=== PATIENT | male | born 1955 | race African-American/Black ===

== ENCOUNTER 2017-01-03 11:31 | Inpatient (IN) | payer OTHER ==
[~2017-01-03] VITALS: Ht 182.9 cm; Wt 135.2 kg
--- NOTE | ~2017-01-03 | HC ---
[facility] [place] [address] CONSULTATION Name: KALYAN VELASCO Room #: 418-P [facility]#: [id number] Admission: 01/03/17 Attend Phys: Ethan Wright MD Discharge: 01/05/17 Date of : 53 Report #: [id number] THIS REPORT FOR: //name// CC: Dakota Wright MD DATE OF SERVICE: 01/04/2017 HISTORY OF PRESENT ILLNESS: The patient is a 61-year-old male who reports approximately 2-day history of dark stools, coffee-ground emesis. He does take an aspirin on a daily basis. He has a history of colon cancer resected years ago and apparently had an EGD and colonoscopy approximately [address] Dakota Hung. He states colonoscopy was negative. He is unsure of the findings of the upper endoscopy. He has no previous history of upper GI bleed. He denies any abdominal pain. He did have an episode of nausea and vomiting with coffee-ground emesis, but none since 2 days ago. He did report some flu-like symptoms and fever, but this is also improved. He denies any dysphagia or significant heartburn symptoms. He does not take any . On admission, his hemoglobin was 11.0. He was mildly . He was given IV fluids. His hemoglobin was dropped to 9.9. He is on a Protonix drip at this time and his aspirin has been held. He denies any chest pain or shortness of breath at this time. PAST MEDICAL HISTORY: Colon cancer, status post resection; hypertension, diabetes, COPD, hypercholesterolemia, the patient wears a CPAP at night. ALLERGIES: No known drug allergies. MEDICATIONS ON ADMISSION: Aspirin 325 mg, amlodipine, Lasix, Lipitor, Glucophage, and Neurontin. REVIEW OF SYSTEMS: As per HPI. FAMILY HISTORY: Negative for colon cancer. SOCIAL HISTORY: He denies any tobacco or alcohol. PHYSICAL EXAMINATION: VITAL SIGNS: Temperature is 97.6, pulse 87, blood pressure 113/69, and respiratory rate is 20. GENERAL: He is alert and oriented x3, in no acute distress. HEENT: Sclerae nonicteric. Oropharynx is clear. NECK: Supple without lymphadenopathy. CARDIOVASCULAR: Regular rate and rhythm. [facility] [address] [place] [address] CONSULTATION Name: KALYAN VELASCO Room #: 418-P [facility]#: [id number] Admission: 01/03/17 Attend Phys: Ethan Wright MD Discharge: 01/05/17 Date of : 53 Report #: [id number] CHEST: Clear to auscultation bilaterally. ABDOMEN: Soft, nontender, nondistended, normoactive bowel sounds. EXTREMITIES: No cyanosis, clubbing or edema. LABORATORY DATA: Sodium 144, potassium 3.2, chloride 109, bicarb 26, BUN 17, creatinine 0.8, AST 14, total bilirubin 0.8, calcium 8.4, alk phos 82, ALT is 23, total protein 6.3, albumin 3.3. WBC 5.5, hemoglobin 9.9, platelet count 177. ASSESSMENT AND PLAN: Gastrointestinal bleed and anemia, suspect upper source based on clinical history. We would recommend proceeding with an upper endoscopy today. Continue to hold aspirin, agree with Protonix drip, we will make further recommendations after endoscopy. Thank you for allowing me to participate in his care. <ELECTRONICALLY SIGNED> By: Jose Shook MD 01/07/17 0829 [id number] Jose Shook MD /nt
--- NOTE | ~2017-01-03 | P ---
[facility] [place] [address] PROCEDURE REPORT Name: KALYAN VELASCO Room #: 418-P [facility]#: [id number] Admission: 01/03/17 Attend Phys: Ethan Wright MD Discharge: 01/05/17 Date of : 53 Report #: [id number] THIS REPORT FOR: //name// CC: Dakota Wright MD DATE OF SERVICE: 01/04/2017 PROCEDURE PERFORMED: Upper endoscopy. HISTORY OF PRESENT ILLNESS: The patient is a 61-year-old male with approximately 2-day history of coffee-ground emesis times 1 and melanotic type stools, no abdominal pain. He was taking aspirin 325 mg on a daily basis. DESCRIPTION OF PROCEDURE: The risks and benefits of the procedure were explained to the patient, those risks including, but not limited to bleeding, perforation, and the risk of sedation. He understood these risks and gave informed consent. Conscious sedation was given using fentanyl and Versed. Next, using a standard mBloxn upper endoscope, the scope was placed in the patient's mouth and advanced under direct vision through the esophagus, stomach and into the second portion of the duodenum. The esophagus was normal throughout. The GE junction was normal. Overall, the gastric mucosa was normal in the fundus and body; however, in the antrum, there was gastritis with several small erosions, also noted there was a single ulcer approximately 1 cm in diameter. There was no visible vessel, although there was a small red area appears to be healing. There was no blood throughout the exam today. The pylorus was normal and patent. The duodenal bulb, first and second portion were all normal. The scope was then withdrawn and the procedure terminated. The patient tolerated the procedure well. IMPRESSION: 1. Antral ulcer, likely source of recent bleed, no visible vessel or clots. 2. Antral gastritis with several small erosions. 3. Otherwise, normal upper endoscopy. RECOMMENDATIONS: 1. Continue PPI drip today. 2. We will advance diet. 3. Repeat hemoglobin in the morning. If stable, we will likely recommend discharge tomorrow. 4. We would recommend continuing PPI therapy long-term if the patient remains on aspirin, we will also check stool for H. pylori antigen. [address] [address] PROCEDURE REPORT Name: KRISTAKALYAN Earline Room #: 418-P [facility]#: [id number] Admission: 01/03/17 Attend Phys: Ethan Wright MD Discharge: 01/05/17 Date of : 53 Report #: [id number] Thank you for allowing me to participate in his care. <ELECTRONICALLY SIGNED> By: Jose Shook MD 01/07/17 0829 [id number] 1108 Jose Shook MD /nt
--- NOTE | ~2017-01-03 | EKG ---
[address] [place] [address] ELECTROCARDIOGRAM REPORT Name: KALYAN VELASCO Room #: 418-P ADM IN [facility].R[facility]#: [id number] Admission: 01/03/17 Attend Phys: Ethan Wright MD Discharge: Date of : 53 Report #: [id number] THIS REPORT FOR: //name// [facility] ED Test Date: 2017-01-03 Test Time: 11:57:26 Pat Name: KALYAN VELASCO Department: Room: [facility] Gender: M [employer] Attendant: MZOOK : 1955 Requested By: Macrina Foster Order Number: [id number] MD: Evin Nguyen Measurements Intervals [place] Rate: 97 P: 69 MN: 171 QRS: -70 QRSD: 120 T: 74 QT: 364 QTc: 463 Interpretive Statements Sinus rhythm left anterior hemiblock Nonspecific intraventricular conduction delay No previous ECG available for comparison Electronically Signed On 01-04-2017 15:16:33 CDT by Evin Nguyen [email or web address] <ELECTRONICALLY SIGNED> By: Evin Nguyen MD, [facility] 01/04/17 1516 1157 1157 Evin Nguyen MD, FACC /EPI
[2017-01-03 11:34] VITALS: BP 98/70
[2017-01-03] MEDS ORDERED: LASIX 20 MG TAB20 MG PO (11:51)
[2017-01-03] MEDS ORDERED: ASPIRIN325 PO (11:51)
[2017-01-03] MEDS ORDERED: NORVASC5 MG PO (11:51)
[2017-01-03] MEDS ORDERED: LIPITOR 20 MG T20 M1 PO (11:52)
[2017-01-03] MEDS ORDERED: GABAPENTIN 100100 MG PO (11:53)
[2017-01-03] MEDS ORDERED: GLUCOPHAGE XR750 MG PO (11:53)
[2017-01-03 12:06] LABS: ABSOLUTE NEUTROPHILS 4.2 thou/uL (1.4-8.2); HEMATOCRIT 32.2 % (42.0-52.0); LYMPHOCYTES 29.4 % (24.0-44.0); MCH 32.3 pg (26.0-34.0); MCHC 34.1 g/dL (28.0-37.0); MCV 94.5 fL (80.0-100.0); MONOCYTES 7.8 % (1.0-8.0); PLATELET COUNT 195 thou/uL (150-400); POLYS 60.8 % (36.0-66.0); RDW 13.6 % (10.5-14.5); WBC 6.8 thou/uL (4.0-11.0)
[2017-01-03 12:20] LABS: CALCIUM 8.9 mg/dL (8.5-10.1); POTASSIUM 3.7 mmol/L (3.5-5.1)
[2017-01-03 12:21] LABS: MANUAL DIFF NO
[2017-01-03 12:24] LABS: ALBUMIN 3.3 g/dL (3.4-5.0); TOTAL BILIRUBIN 0.8 mg/dL (<0.1-1.0); TOTAL PROTEIN 6.3 g/dL (6.4-8.2)
[2017-01-03 13:45] LABS: URINE BILIRUBIN NEGATIVE (Negative); URINE BLOOD NEGATIVE (Negative); URINE COLOR YELLOW; URINE GLUCOSE-RANDOM* NEGATIVE (Negative); URINE KETONES NEGATIVE (Negative); URINE NITRITE NEGATIVE (Negative); URINE PROTEIN (DIPSTICK) NEGATIVE (Negative); URINE UROBILINOGEN 0.2 E.U./dl (0.2-1.0)
[2017-01-03 14:35] VITALS: BP 95/50
[2017-01-03 15:58] VITALS: BP 97/59
[2017-01-03 18:21] LABS: HEMATOCRIT 30.8 % (42.0-52.0); HEMOGLOBIN 10.6 gm/dL (14.0-18.0)
[2017-01-03 20:00] VITALS: BP 134/89
[2017-01-04 00:56] LABS: HEMATOCRIT 29.1 % (42.0-52.0)
[2017-01-04 01:04] LABS: CALCIUM 8.4 mg/dL (8.5-10.1); CREATININE 0.8 mg/dL (0.6-1.3); POTASSIUM 3.2 mmol/L (3.5-5.1)
[2017-01-04 04:00] VITALS: BP 111/69
[2017-01-04 06:00] LABS: HEMATOCRIT 29.3 % (42.0-52.0); HEMOGLOBIN 9.9 gm/dL (14.0-18.0); MCH 31.9 pg (26.0-34.0); MCHC 33.7 g/dL (28.0-37.0); MCV 94.8 fL (80.0-100.0); RBC 3.09 mil/uL (4.50-6.00); RDW 13.5 % (10.5-14.5); WBC 5.5 thou/uL (4.0-11.0)
[2017-01-04 07:30] VITALS: BP 113/69
[2017-01-04 12:20] LABS: HEMOGLOBIN 9.5 gm/dL (14.0-18.0)
[2017-01-04 15:35] VITALS: BP 112/60
[2017-01-04 20:00] VITALS: BP 131/76
[2017-01-05 04:00] VITALS: BP 129/75
[2017-01-05 06:15] LABS: HEMATOCRIT 26.4 % (42.0-52.0); MCH 32.2 pg (26.0-34.0); MCHC 33.9 g/dL (28.0-37.0); MCV 94.9 fL (80.0-100.0); RBC 2.79 mil/uL (4.50-6.00); RDW 13.7 % (10.5-14.5); WBC 6.1 thou/uL (4.0-11.0)
[2017-01-05 07:13] VITALS: BP 138/71
[2017-01-05] MEDS ORDERED: PROTONIX40 M1 PO (13:46)
[2017-01-05 14:14] VITALS: BP 138/71
[2017-01-05] MEDS ORDERED: CARAFATE 1 GM TA1 G1 PO (14:25)
== END 2017-01-05 15:32 | disposition home or self-care (01) | DRG 378 ==
LOC: ER 11:31 → EROBS 13:30 → 4E 13:30
PROVIDERS: Hospitalist; Nurse Practitioner Family
PROC: 0DJ08ZZ Inspection of Upper Intestinal Tract, Via Natural or Artificial Opening Endoscopic (ICD-10-PCS; principal; 2017-01-04)
DX: K25.4 Chronic or unspecified gastric ulcer with hemorrhage (principal); E44.1 Mild protein-calorie malnutrition; Z68.41 Body mass index [BMI] 40.0-44.9, adult; D64.9 Anemia, unspecified; I10 Essential (primary) hypertension; I95.9 Hypotension, unspecified; K29.00 Acute gastritis without bleeding; D50.0 Iron deficiency anemia secondary to blood loss (chronic); E11.9 Type 2 diabetes mellitus without complications; J44.9 Chronic obstructive pulmonary disease, unspecified; E78.5 Hyperlipidemia, unspecified; E78.00 Pure hypercholesterolemia, unspecified; Z79.899 Other long term (current) drug therapy; Z79.82 Long term (current) use of aspirin; Z85.038 Personal history of other malignant neoplasm of large intestine
CPT/HCPCS: 10084

== ENCOUNTER → 2017-11-27 | Outpatient (CLI) | payer OTHER ==
[~2017-11-27] MED LIST: ASPIRIN325 PO; CARAFATE 1 GM TA1 G1 PO; GABAPENTIN 100100 MG PO; GLUCOPHAGE XR750 MG PO; LASIX 20 MG TAB20 MG PO; LIPITOR 20 MG T20 M1 PO; NORVASC5 MG PO; PROTONIX40 M1 PO
[2017-11-27 09:21] LABS: CREATININE 0.9 mg/dL (0.7-1.3)
== END ==
LOC: CAT 08:00 → LABMALL 08:00
PROVIDERS: Internal Medicine Gastroenterology
DX: K80.80 Other cholelithiasis without obstruction (principal); K42.9 Umbilical hernia without obstruction or gangrene; K25.9 Gastric ulcer, unspecified as acute or chronic, without hemorrhage or perforation